=== PATIENT | male | born 1940 | race Caucasian/White ===

== ENCOUNTER 2022-09-18 07:23 | Outpatient (CLI) | payer MEDICARE, OTHER, SELFPAY | END 2022-09-18 07:24 | disposition home or self-care (01) | LOC: NFLDREF 12:11 | PROVIDERS: PCP Family Medicine; Referring Provider Family Medicine; Visit Provider Family Medicine | DX: I25.10 Atherosclerotic heart disease of native coronary artery without angina pectoris (principal); Z12.5 Encounter for screening for malignant neoplasm of prostate | CPT/HCPCS: 80053; 80061; 84153 ==

== ENCOUNTER 2023-03-03 15:14 | Outpatient (CLI) | payer MEDICARE, OTHER, SELFPAY ==
--- NOTE | 2023-03-03 15:30 | MR_ITS ---
[facility] [address] [facility] [address] Phone:?[phone] Fax:?[phone] Referring Physician Information: Jeancarlos Yu M.D. [address] [facility] [address] Phone:?[phone] Fax:?[phone] Patient:Jen Manjarrez D.O.B:?1940 Sex:?Male Phone:?[phone] [facility] MRN:?[id number] Exam Date:?03/03/2023 EXAM: MRI of the LEFT KNEE, without contrast CLINICAL INFORMATION: Male, 82 years old, with left knee pain. INDICATION: Evaluate for osteonecrosis. PRIOR SURGERY: None reported. PLAIN FILMS: None available. COMPARISONS: No prior MRIs available. TECHNICAL INFORMATION: Using a 1.5T MR scanner and a localizing surface coil: sagittals: PD, PDFS coronals: PD, T2FS axials: PD, PDFS SEDATION: None CONTRAST: None FINDINGS: Knee joint: Effusion: Moderate left knee effusion, with synovitis. Popliteal cyst: None. Loose bodies: None. Subcutaneous and extra-articular soft tissues: Unremarkable. Ligaments: ACL: Intact ACL anteromedial and posterolateral bundles, without sprain or tear. PCL: Intact PCL, without acute or chronic injury. MCL: Mild thickening involving the proximal one third of the superficial MCL, without MCL tear. LCL: Intact LCL, without injury. Posterolateral corner: No posterolateral corner soft tissue injury. Popliteus, biceps femoris, iliotibial band, popliteofibular ligament and lateral gastrocnemius are intact. Posteromedial corner: No posteromedial corner soft tissue injury. Semimembranosus, pes anserine tendons and posterior oblique ligament are without injury, tendinopathy or bursitis. Extensor mechanism: Patellar tendon: Intact, without tendinopathy. Quadriceps tendon: Intact, without tendinopathy. Retinacula: Medial and lateral retinacula are intact. Fat pads: Moderately edematous appearance of the suprasellar fat pad (sagittal PDFS series 6 images 15-22). Unremarkable prevertebral femoral and infrapatellar Hoffa's fat pads. Medial compartment: Medial meniscus: Complex apical free edge and undersurface tearing of the posterior horn and body of the medial meniscus measuring 3.2 cm, with superimposed full-thickness radial tearing at the posterior horn/body junction (sagittal PDFS series 6 images 4-10 and coronal STIR series 8 images 20-24). Meniscal extrusion measures 4 mm. No parameniscal cyst. Medial femoral condyle: Broad-based grade III chondromalacia throughout the central surface of the medial femoral condyle with moderate subchondral edema and cystic change (coronal STIR series 8 image 21). Mild marginal osteophytosis. Medial tibial plateau: Generalized grade III chondromalacia of the medial tibial plateau, with mild marginal osteophytosis. Lateral compartment: Lateral meniscus: No articular surface, meniscosynovial junction or root tear. No displacement, extrusion or parameniscal cyst. Lateral femoral condyle & tibial plateau: Broad-based grade II chondromalacia throughout the central, weightbearing aspect of the lateral compartment, without reactive osseous changes. Patellofemoral joint: Patella: Broad-based grade II/III chondromalacia of the medial facet and median ridge, with mild marginal osteophytosis. Trochlea: Broad-based grade II/III chondromalacia of the medial facet and central sulcus, with mild marginal osteophytosis. Proximal tibiofibular joint: Unremarkable, without evidence of ligament sprain injury, joint effusion or adjacent marrow edema. Bones: Approximately 1.9 x 1.4 cm area of mild concavity of the central surface of the medial femoral condyle with subtle subchondral fracturing (sagittal PDFS series 6 image 7 and coronal PD series 7 image 23). This is associated with extensive surrounding bone marrow edema. IMPRESSION: 1. Complex tearing of the posterior horn and body medial meniscus over a length of 3.2 cm, most notable for full-thickness radial tearing at the posterior horn/body junction. This tear is expected to diminish the intrinsic meniscal load sharing function. 2. Approximately 1.9 x 1.4 cm poorly defined subchondral fracture of the central surface of the medial femoral condyle, with concavity of the overlying articular surface. This is associated with extensive surrounding bone marrow edema. 3. Moderate osteoarthritis of the medial compartment. 4. Mild osteoarthritis of the patellofemoral compartment. 5. Mild chondromalacia of the lateral compartment. 6. Moderate knee joint effusion, with synovitis. No popliteal (Fairchild's) cyst. 7. No acute cruciate or collateral ligament sprain/tear. 8. No lateral meniscal tear. BC Electronically signed on 03/04/2023 10:02:00 AM by Kobi Samuel M.D.
== END 2023-03-03 15:15 | disposition home or self-care (01) ==
LOC: MRI 15:15
PROVIDERS: PCP Family Medicine; Visit Provider Orthopaedic Surgery Sports Medicine
DX: M25.562 Pain in left knee (principal); S83.242A Other tear of medial meniscus, current injury, left knee, initial encounter; M17.12 Unilateral primary osteoarthritis, left knee; M22.42 Chondromalacia patellae, left knee; M25.462 Effusion, left knee; M87.9 Osteonecrosis, unspecified
CPT/HCPCS: 73721

== ENCOUNTER 2023-09-03 08:30 | Outpatient (CLI) | payer MEDICARE, OTHER, SELFPAY ==
[2024-09-02 10:50] LABS: Hemoglobin* 14.5 gm/dL (13.5-17.5)
[2024-09-02 11:02] LABS: Albumin* 4.3 g/dL (3.3-5.0); Chloride* 102 mmol/L (96-114); Potassium* 4.5 mmol/L (3.6-5.1); Sodium* 137 mmol/L (135-149)
[2024-09-02 11:05] LABS: Anion Gap 10 mEq/L (7-15); Blood Urea Nitrogen* 19 mg/dL (7-30); Calcium* 9.5 mg/dL (8.4-10.6); Carbon Dioxide* 25 mmol/L (20-32); Creatinine* 1.2 mg/dL (0.5-1.5); Estimated Glomerular Filt Rate 60 ml/min; Glucose* 179 mg/dL (60-115)
[2024-09-02 11:07] LABS: Creatinine Urine 57.9 mg/dL
[2024-09-02 11:14] LABS: Microalbumin Creatinine Ratio 50 mg/g (0-30); Microalbumin Urine 3 mg/dL
[2024-09-02 11:15] LABS: PTH Intact* 37.3 pg/mL (14.2-75.2)
== END 2023-09-03 08:31 | disposition home or self-care (01) ==
LOC: NPINS 09-05 11:10
PROVIDERS: PCP Family Medicine; Visit Provider Internal Medicine Nephrology
DX: N18.31 Chronic kidney disease, stage 3a (principal)
CPT/HCPCS: 80069; 82043; 82570; 83970; 85018

== ENCOUNTER 2023-10-21 07:55 | Outpatient (CLI) | payer MEDICARE, OTHER, SELFPAY ==
--- OUTSIDE RECORDS SUMMARY | 2023-10-21 07:57 | XMS_ITS | Continuity of Care Document ---
Author Name 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 It does not include entries that were removed or entered in error. Problem Status Onset Date Problem Type Date of Resolution Comments Source Coronary Artery Disease Active Condition Mar 19, 2011 Entered By: ZULMA TIERNEY Comment: lad stent 09 [facility] Gastroesophageal Reflux Disorder Active Condition [facility] Hypertension Active Condition [facility] Hypogonadism Active Condition [facility] Other and unspecified hyperlipidemia Active Condition [facility] Other left bundle branch block Active Condition [facility] SENSORNEUR LOSS BILAT Active Condition [facility] Diagnosis: ICD-10-CM H90.5 Unspecified sensorineural hearing loss Active Diagnosis [facility] Diagnosis: ICD-10-CM H90.3 Sensorineural hearing loss, bilateral Active Diagnosis [facility] Medications Combined list of outpatient medications from Department of [facility] and [facility] facilities.Medications provided include 1) outpatient medications from the last 15 months, and 2) patient-reported medications. Medication Details Route Status Patient Instructions Prescription Expires Prescription Number Last Dispense Date Ordering Provider Order Date Order Qty Source CLOPIDOGREL BISULFATE 75MG TAB TAKE ONE TABLET BY MOUTH EVERY MORNING ORAL ACTIVE ZULMA SHETH [address] [place] [place] [facility] FAMOTIDINE (famotidine ), 20 MG, TABLET, ORAL, [employer] 1000 ea. BOTTLE Active [id number] 4 2023 180 Pharmac y Data Transac tion Service Facilit y FENOFIBRATE (fenofibrat e nanocrystal lized), 145MG, TABLET, ORAL, [employer], 90 ea. BOTTLE Active [id number] 4 2023 90 Pharmac y Data Transac tion Service Facilit y FENOFIBRATE (fenofibrat e nanocrystal lized), 145MG, TABLET, ORAL, [employer], 90 ea. BOTTLE Active [id number] 4 2023 90 Pharmac y Data Transac tion Service Facilit y FENOFIBRATE 134MG CAP TAKE 1 CAPSULE BY MOUTH EVERY DAY ORAL ACTIVE [facility]ST ON,[place] [facility] [address] [place] [place] [facility] FISH OIL 1000MG (500MG DHA/EPA) CAP,ORAL TAKE 4 CAPSULES BY MOUTH EVERY DAY ORAL ACTIVE [facility] ON,[place] [facility] [address] [place] [place] [facility] LISINOPRIL (lisinopril ), 40 MG, TABLET, ORAL, [employer], 1000 ea. BOTTLE Active [id number] 4 2023 90 Pharmac y Data Transac tion Service Facilit y LISINOPRIL (lisinopril ), 40 MG, TABLET, ORAL, [employer], 180 ea. BOTTLE Active [id number] 3 2022 90 Pharmac y Data Transac tion Service Facilit y LISINOPRIL 40MG TAB TAKE ONE-HALF TABLET BY MOUTH EVERY MORNING ORAL ACTIVE [facility]ST ON,[place] [address] [place] [place] [facility] METOPROLOL SUCCINATE (metoprolol succinate), 25 MG, TAB ER 24H, ORAL, [employer] 1000 ea. BOTTLE Active [id number] 4 2023 90 Pharmac y Data Transac tion Service Facilit y METOPROLOL SUCCINATE 50MG TAB,SA TAKE ONE-HALF TABLET BY MOUTH EVERY DAY ORAL ACTIVE [facility] ON,[place] [address] [place] [place] [facility] MULTIVITAMI NS CAP/TAB TAKE ONE TABLET BY MOUTH EVERY DAY ORAL ACTIVE [place] ON,[place] [address] [place] [place] [facility] RANITIDINE HCL 150MG TAB TAKE ONE TABLET BY MOUTH TWICE A DAY ORAL ACTIVE [facility]ATHERST ON,[facility] [address] [place] [place] [facility] ROSUVASTATI N CA 40MG TAB TAKE ONE-HALF TABLET BY MOUTH EVERY DAY ORAL ACTIVE [place]ERST ON,[place] [address] [place] [place] [facility] ROSUVASTATI N CALCIUM (rosuvastat in calcium), 40 MG, TABLET, ORAL, [employer] 1000 ea. BOTTLE Active [id number] 4 2023 90 Pharmac y Data Transac tion Service Facilit y ROSUVASTATI N CALCIUM (rosuvastat in calcium), 40 MG, TABLET, ORAL, [employer] 30 ea. BOTTLE Active [id number] 4 2023 90 Pharmac y Data Transac tion Service Facilit y SILDENAFIL CITRATE (sildenafil citrate), 50 MG, TABLET, ORAL, [employer], 100 ea. BOTTLE Active [id number] 4 2023 10 Pharmac y Data Transac tion Service Facilit y SILDENAFIL CITRATE (sildenafil citrate), 50 MG, TABLET, ORAL, [employer], 100 ea. BOTTLE Active [id number] 4 2023 10 Pharmac y Data Transac tion Service Facilit y SILDENAFIL CITRATE (sildenafil citrate), 50 MG, TABLET, ORAL, [employer], 100 ea. BOTTLE Active [id number] 3 2023 10 Pharmac y Data Transac tion Service Facilit y SILDENAFIL CITRATE (sildenafil citrate), 50 MG, TABLET, ORAL, [employer], 100 ea. BOTTLE Active [id number] 4 2023 10 Pharmac y Data Transac tion Service Facilit y TESTOSTERON E GEL,TOP APPLY 5 GRAMS TOPICALL Y EVERY DAY TOPICA L ACTIVE FEATH[facility]ST ON,ZULMA P [address] [place] [place] [facility] Immunizations Combined list of available immunizations from the Department of Defense and Veterans Affairs facilities. Immunization Series Date Given Administered By Site Reaction Lot Number CVX Code Drug Steward/Stewardess Lounge Status Comments Source zoster recombinant 2020 DINORAH, () Not Given zoster recombina nt DoD Influenza vaccine, quadrivalent, adjuvanted 2019 OVERHOLT, () Not Given Influenza vaccine, quadrival ent, adjuvante d DoD INFLUENZA, UNSPECIFIED FORMULATION 2010 NONE 88 complet ed [id number] anofi Pasteur/0 12/13/2011 [place] [place] [facility] PNEUMOCOCCAL, UNSPECIFIED FORMULATION 2010 NONE 109 complet ed [employer] [id number] / [id number] [place] [place] [facility] TD(ADULT) UNSPECIFIED FORMULATION 2010 NONE 139 complet ed [id number]/ [id number]/ Sanofi Pasteur [place] [place] [facility] INFLUENZA, UNSPECIFIED FORMULATION 2004 88 complet ed [facility] INFLUENZA, UNSPECIFIED FORMULATION 2002 88 complet ed [facility] Encounters Combined list of: 1) Encounters from Department of [facility] Affairs facilities going back up to thelast 18 months. 2) Encounters from the Department of [facility] facilities going back up to 280 months. Location Location Details Encounter Type Encounter Number Reason For Visit Attending Provider ADM Date DC Date Status Disposition Source [facility] [id number] Diagnos is: ICD-10- CM H90.3 Sensori neural hearing loss, bilater al
KRIS HERNANDEZ 05/14 [facility] [id number] Diagnos is: ICD-10- CM H90.3 Sensori neural hearing loss, bilater al
LEONID KILGORE 07/11 [facility] [id number] Diagnos is: ICD-10- CM H90.5 Unspeci fied sensori neural hearing loss
UDAY EAST 08/19 [facility] Social History Combined list of available smoking, tobacco, and other social history from Department of Defense and Veterans Affairs facilities. Social History Type Response Date Comment Sourc e Tobacco smoking status NHIS LIFETIME NON-USER OF TOBACCO 03/19/2011 [place] [place] [facility] This section is an empty social history section. DoD Advance Directives List of completed, amended, or rescinded Advance Directives on record at [facility] facilities. An actual copy of the Directive is not included. Date Advance Directive Provider Source 10/20/2003 ADVANCE DIRECTIVE SKIP DAMON [facility]
--- OUTSIDE RECORDS SUMMARY | 2023-10-21 07:58 | XMS_ITS | Data Portability ---
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 -- collect your urine for 24 hours to get a more accurate kidney function [email or web address] Not available 06/14/2015 18:14:18 06/28/2015 06/28/2015 -- do not take NSAIDs and other medications toxic to your kidneys -- keep your blood pressure <140/90 to prevent the progression of kidney disease -- maintain a healthy lifestyle?? Having kidney disease puts you at an increased risk for developing worsening of kidney function. ??Being hospitalized, being dehydrated, getting toxic medications or contrast, or having long procedures or surgeries, or having shifts in your body fluid status are some ways that can result in kidney injury. These injuries are considered acute meaning that there is a chance of recovery to somewhere near where your kidney function was prior to the insult, only time will tell if this recovery occurs. Depending on the severity of the insult, the severity of your chronic kidney disease, and your overall health your kidney function may or may not recover. The more insults that you receive and the closer together those insults are the less likely your kidney function will recover. I have instructed your doctors on some ways to try to prevent these injuries, but it is not a guarantee that you would develop worsening kidney function. I have discussed the risks and benefits of the procedure/surger y with you and you have expressed understanding and have chosen to proceed with the procedure/surger y.?? [email or web address] Not available 06/28/2015 11:09:29 05/30/2020 05/30/2020 using ; 2 diff forms of vit d , he will cut back vit d to 3 days per week rtc with labs 2 months Not available 05/30/2020 17:25:01 07/13/2020 07/13/2020 using ; 2 diff forms of vit d , he will cut back vit d to 2 days per week rtc no labs 7 weeks Start hydralazide 25 mg twice a day Not available 07/13/2020 11:09:54 Plan of Treatment Reminders Order Date Submit Date Provider Last Modified By Organization Details Last Modified Time Details Appointments None recorded. Lab vitamin D, 25-hydroxy, total, serum 2019 020 [facility] ([employer]), [address] [place], [address], 1 10:54:35 renal function panel, serum 2019 020 [email or web address] 5 [facility] [address] [place], [address], 0 17:50:39 vitamin D, 25-hydroxy, total, serum 2019 020 [facility] [address] [place], [address], 0 13:35:56 renal function panel, serum [address] [facility] ([facility]), [address] [facility] [place], [address], 0 12:28:40 PTH (parathyroi d hormone), intact, serum or plasma 2019 020 JAE [facility] ([facility]), [address] [place], [address], 0 18:23:45 vitamin D, 25-hydroxy, total, serum 2019 020 [email or web address] s1 [facility] ([facility]), [address] [place], [address], 0 11:21:34 renal function panel, serum 2019 020 mbustillo s1 [facility] ([facility]), [address] [place], [address], 0 11:21:33 PTH (parathyroi d hormone), intact, serum or plasma [address] ([facility]), [address] [place], [address], 0 11:21:34 CBC w/ diff 2019 020 mbustillo s1 [facility] ([facility]), [address] [place], [address], 0 11:21:34 protein, total, urine [address] ([facility]), [address] [place], [address], 0 11:21:34 renal function panel, serum 2015 016 tbandin Not available 6 11:12:20 urinalysis complete, reflex culture 2015 016 tbandin Not available 6 11:12:21 protein:cre atinine ratio, urine 2015 016 tbandin Not available 6 11:12:21 creatinine clearance, 24-hour urine 2014 015 JAE Not available 6 10:38:47 renal function panel, serum 2014 015 JAE Not available 6 10:47:52 urinalysis complete, reflex culture 2014 015 JAE Not available 6 10:38:47 protein:cre atinine ratio, urine 2014 015 JAE Not available 6 10:38:48 Referral None recorded. Procedures None recorded. Surgeries None recorded. Imaging US, kidney 2019 020 [email or web address] Not available 0 12:23:14 Medication Orders hydralazine 25 mg tablet 2020 021 [facility], [address] [place] [address], [address], 03:30:50 Patient TargetsNo targets recorded. Patient Instructions Encounter Date Encounter Id Patient Instructions Last Modified By Organization Details Last Modified Time 07/13/2020 [id number] medical record request* - Please fax last ov note and recent echo. Thank you [email or web address] Not available 08/02/2020 17:33:00 05/30/2020 [id number] medical record request* - Please fax last ov note and recent echo. Thank you [email or web address] Not available 09/16/2020 22:58:56 03/14/2020 [id number] medical record request* - Please fax last ov note and recent echo. Thank you Not available 03/27/2020 16:44:21 02/01/2020 [id number] CKD stages Not available 01/13 12:14:54 nephrotoxic & nsaid medications Not available 02/01/2020 12:14:54 medical record request* - Please fax last ov note and recent echo. Thank you Not available 02/09/2020 17:24:56 06/28/2015 [id number] nephrotoxic & nsaid medications tbandin Not available 06/28/2015 11:11:54 low sodium diet tbandin Not available 06/28/2015 11:12:10 06/14/2015 [id number] nephrotoxic & nsaid medications ldeprada Not available 06/14/2015 18:14:18 low sodium diet ldeprada Not available 06/14/2015 18:14:18 Reason for Referral None Reported. Results Created Date Observation Date Name Description Value Unit Range Abnormal Flag LastModifiedBy Organization Detail LastModifiedTime 03/14/20 20 02/15/2020 US, trupti y No deshaun ation record ed. Not Available 05/30/2020 17:23:19 Result Notes None recorded. Problems Name Status Onset Date Resolution Date Notes Provider Name and Address Organization Details Recorded Time Renal failure syndrome Active Kala Turcios MD [address] [place] [address],[address], [place], [address] , [facility], [facility] 06/28/2015 11:10:28 Essential hypertension Active Kala Turcios MD [address] [place] [address],[address], [place], [address] , [facility], [facility] 06/28/2015 11:10:28 Osteoarthritis Active Kala Turcios MD [address] [place] [address],[address], [place], [address] , [facility] 06/28/2015 11:10:28 Benign prostatic hyperplasia with outflow obstruction Dorothy Turcios MD [address] [place] [address],[address], [place], [address] , [facility] 06/28/2015 11:10:28 Chronic kidney disease stage 3 Active Kala Turcios MD [address] [place] [address],[address], [place], [address] , [facility] 06/28/2015 11:10:28 Notes:07/13 GRICELDA NOBLE Problem Notes None recorded. Procedures Surgical History Date Name Laterality Status Provider Name and Address Organization Details Recorded Time 01/01/20 14 Hip Replacement completed Jodi cedeño, [facility] 02/01/2020 11:49:29 06/15/19 03 Other completed Felice Sernart cedeño, [facility] 06/14/2015 17:47:08 percutaneous transluminal coronary angioplasty completed Kitty Novak MD [address] [facility],[address], [place], [address], [facility] - [facility], [facility] 02/01/2020 12:03:56 Imaging Results Imaging Date Name Status LastModified by Organiz ation Details LastModified Time 02/15/2020 US, kidney completed Information no t available 05/30/2020 17:23:19 Procedure Notes None recorded. Medical Equipment None Reported. Allergies No known drug allergies Medications Name Sig Start Date Stop Date Status Note LastModified by Organization Details LastModified Time hydralazine 25 mg tablet Take 1 tablet twice a day by oral route for 90 days. active Not Available Not Available No t Available Plavix 75 mg tablet Take 1 tablet every day by oral route. 01/31 completed Not Available Not Available Not Available cephalexin 500 mg capsule TAKE ONE CAPSULE BY MOUTH THREE TIMES DAILY FOR 10 DAYS active Not Available Not Available No t Available ranitidine 150 mg tablet 01/31 completed Not Available Not Available Not Available nitroglycer in 0.4 mg sublingual tablet prn active Not Available Not Available Not Available ranitidine 150 mg capsule Take 1 capsule twice a day by oral route. 01/31 completed Not Available Not Available Not Available metoprolol succinate ER 25 mg tablet,exte nded release 24 hr Take 1 tablet every day by oral route. active Not Available Not Available No t Available Pepcid 20 mg tablet Take 1 tablet every day by oral route for 90 days. active Not Available Not Available No t Available methylpredn isolone 4 mg tablets in a dose pack TAKE DIRECTED active Not Available Not Available No t Available testosteron e 1 % (25 mg/2.5 gram) transdermal gel packet 07/13 completed Not Available Not Available Not Available lisinopril 40 mg tablet Take 1 tablet every day by oral route. active Not Available Not Available No t Available fluticasone propionate 50 mcg/actuati on nasal spray,suspe nsion SPRAY 2 SPRAYS IN EACH NOSTRIL ONCE DAILY NEEDED active Not Available Not Available No t Available rosuvastati n 40 mg tablet Take 1 tablet every day by oral route for 90 days. active Not Available Not Available No t Available Crestor 20 mg tablet Take 1 tablet every day by oral route. 01/31 completed Not Available Not Available Not Available tadalafil 10 mg tablet active Not Available Not Available Not Available Tricor 145 mg tablet Take 1 tablet every day by oral route for 90 days. active Not Available Not Available No t Available omega-3 acid ethyl esters 1 gram capsule Take 1 capsule 4 times a day by oral route. active Not Available Not Available No t Available Tricof 145mg 01/31 completed Not Available Not Available Not Available metoprolol succ 25 mg-hydrochl orothiazide 12.5 mg tablet,ext. rel 24 hr Take 1 tablet every day by oral route. active Not Available Not Available No t Available Fluad Quad (6 5yr up)(PF) 60 mcg (15 mcg x 4)/0.5mL IM syringe ADM 0.5ML IM UTD 03/14 completed Not Available Not Available Not Available Vitals Date Recorded Body height Heart rate Body weight Body mass index (BMI) Systolic blood pressure Diastolic blood pressure Provider Name and Address Organization Details Last Updated DateTime 5 190.5 cm 68 /min 141618. 08820 g 29.7 kg/m2 140 mm[Hg] 80 mm[Hg] Felice [facility], [facility] 5 17:47:08 Date Recorded Body height Heart rate Body mass index (BMI) Body weight Systolic blood pressure Diastolic blood pressure Provider Name and Address Organization Details Last Updated DateTime 6 190.5 cm 61 /min 28.6 kg/m2 863945. 89644 g 140 mm[Hg] 70 mm[Hg] Felice [facility], [facility] 6 10:51:48 Date Recorded Body height Body mass index (BMI) Body weight Systolic blood pressure Diastolic blood pressure Provider Name and Address Organization Details Last Updated DateTime 02/01/2020 195.58 cm 28.2 kg/m2 701418.9 8 g 140 mm[Hg] 80 mm[Hg] Jodi cedeño, [facility], [facility] 0 11:47:19 Date Recorded Body height Provider Name an d Address Organization Details Last Updated DateTime 03/08/[address] [address] [facility] 03/08/2020 17:24:42 Date Recorded Body height Body mass index (BMI) Body weight Provider Name and Address Organization Details Last Updated DateTime 03/14/2020 195.58 cm 28.5 kg/m2 743953.[address] [facility] 03/14/2020 12:06:05 Date Recorded Body height Body mass index (BMI) Body weight Provider Name and Address Organization Details Last Updated DateTime 05/30/2020 195.58 cm 28.5 kg/m2 224583.17 g Jodi Kay [facility], [facility], [facility] 05/30/2020 17:15:07 Date Recorded Body height Body mass index (BMI) Body weight Systolic blood pressure Diastolic blood pressure Systolic blood pressure Diastolic blood pressure Provider Name and Address Organization Details Last Updated DateTime 1 195.58 cm 28.2 kg/m2 569874. 98 g 160 mm[Hg] 90 mm[Hg] 138 mm[Hg] 80 mm[Hg] Jodi Kay [facility], [facility], [facility] 1 10:56:59 Social History Question Answer Notes LastModified by Organizat ion Details LastModified Time Tobacco Smoking Status Former Smoker Felice Sernart cedeño, [facility], [facility] 06/14/2015 17:47:07 What Is Your Level Of Alcohol Consumption? Occasional Information not available 02/01/2020 What Is Your Level Of Caffeine Consumption? None Information not available 06/14/2015 How Much Tobacco Do You Chew? None Information not available 06/14/2015 Which Illicit Or Recreational Drugs Have You Used? 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 No Information not available 06/14/2015 How Many Years Have You Smoked Tobacco? 15 Information not available 06/14/2015 Sex: Male Functional Status None recorded. Mental Status None recorded. Family History Relationship Description Onset Age of this Age Resolved Age Notes Father No current problems or disability heart dx, Mother No current problems or disability 83 cancer Notes:no family h/o kidney d isease 07/13 GRICELDA NOBLE Medical History Condition Response Coronary Artery Disease N [facility] Discharge Date N Kidney Stones N CKD 4 - Education Session 2 N PD catheter present N Access placement referred (PD/AVF) N CKD 4 - Education Session 5 N Echo EF N COPD N Anemia N Hepatitis C N CKD 4 - Education Session 6 N Dialysis Start - Office OR Hospital N CKD 4 - Education Session 3 N Kidney Transplant N Peripheral Vascular Disease (PVD) N Kidney Disease (CKD) Y Diabetes Type 2 N CKD 4 - Education Session 4 N [facility] Discharge Reason N AVF present N CHF N CKD 4 - Education Session 1 N Hyperlipidemia Y Acid Reflux (GERD) N Cancer N NSAIDs use N Stroke N Asthma N Hepatitis B N Lupus N Sleep Apnea N Diabetes Type I N Polycystic Kidney Disease N Hypertension Y ESRD Onset Date N Immunizations Vaccine Type Date Status Provider Name and Address Organization Details Recorded Time influenza, injectable, quadrivalent 02/23/2020 completed ANNY Gonzales - [facility], [facility] 03/14/2020 12:05:14 Past Encounters Encounter ID Performer Location Encounter Start Date Encounter Closed Date Diagnosis/Indication Diagnosis SNOMED-CT Code [id number] Salvador Elena MD [facility] [address] [place] [address],[address] [address] 06/14/2015 17:17:46 06/14/2015 18:17:34 Renal failure syndrome 25121060 Essential hypertension 79902059 Osteoarthritis 216642682 Benign pro static hyperplasia with outflow obstruction [id number] Farahn Rogers MD [facility] [address] [place] [address],[address] [address] 06/28/2015 10:39:20 06/28/2015 11:15:42 Essential hypertension 49703754 Osteoarthritis 404209729 Benign pro static hyperplasia with outflow obstruction 793575412 Chronic ki dney disease stage 3 [id number] [id number] Kitty Novak MD [address] [address] 02/01/2020 11:43:55 02/01/2020 15:25:10 Chronic kidney disease stage 3 791780792 Essential hypertension 52733376 Osteoarthritis 329566735 Coronary arteriosclerosis 22798319 Hyperlipidemia 54776133 Gastroesop hageal reflux disease without esophagitis 450411211 Vitamin D deficiency 347 73305 [id number] Kitty Novak MD [facility] [place] [address] [place] [address] 03/14/2020 12:02:52 03/14/2020 17:20:58 Chronic kidney disease stage 3 990578579 Coronary arteriosclerosis 77029453 Essential hypertension 32269462 Osteoarthritis 312565106 Hyperlipidemia 80519642 Gastroesop hageal reflux disease without esophagitis 726567847 Vitamin D deficiency 347 10926 [id number] Kitty Novak MD [address] [address] 05/30/2020 17:11:59 05/30/2020 17:51:14 Chronic kidney disease stage 3 135555830 Coronary arteriosclerosis 99188441 Essential hypertension 17082362 Osteoarthritis 152936006 Hyperlipidemia 66978379 Gastroesop hageal reflux disease without esophagitis 410986991 Vitamin D deficiency 347 54649 [id number] Kitty Novak MD [facility] [place] [address] [address] 07/13/2020 10:35:19 07/13/2020 12:19:57 Chronic kidney disease stage 3 030397306 Coronary arteriosclerosis 38023631 Essential hypertension 64823955 Osteoarthritis 770791134 Hyperlipidemia 57419960 Gastroesop hageal reflux disease without esophagitis 377182937 Vitamin D deficiency 347 10242 Health Concerns Section Related Observation LastModified by Organization Detai ls LastModified Time None Recorded Concern Status LastModified by Organization Details LastModified Time None Recorded Advance Directives Directive None Recorded Payers Encounter Date Sequence Insurance Name Policy Number Policy Bauman Covered Member ID Bauman Member ID Guarantor Name 07/13/2020 1 [place] Vamshi Manjarrez [id number] Vamshi Manjarrez 07/13/2020 2 WPS - FOR LIFE Vamshi Manjarrez [id number] Vamshi Manjarrez 05/30/2020 1 [place] Vamshi Manjarrez [id number] Vamshi Manjarrez 05/30/2020 2 [place] - FOR LIFE Vamshi Manjarrez [id number] Vamshi Loki 03/14/2020 1 [place] Vamshi Manjarrez [id number] Vamshi Loki 03/14/2020 2 [place] - FOR LIFE Vamshi Loki [id number] Vamshi Loki 02/01/2020 1 [place] Vamshi B Loki [id number] Vamshi Loki 02/01/2020 2 [place] - FOR LIFE Vamshi Loki [id number] Vamshi Loki 06/28/2015 1 [place] Vamshi Nichole Manjarrez [id number] Vamshi Loki 06/28/2015 2 [place] - FOR LIFE Vamshi Loki [id number] Vamshi Loki 06/14/2015 1 [place] Vamshi Manjarrez [id number] Vmashi Loki 06/14/2015 2 [place] - FOR LIFE Vamshi Manjarrez [id number] Vamshi Manjarrez Notes Date Note Type Note Provider Name and Address Organization Details Recorded Time 06/14/2015 text/html HPI Notes: Danna garnett sent by PCP for abnormal kidney function. He reports that he needs to have a hip replacement and was doing preop work up (not scheduled yet) and had blood work done and found to have abnormal kidney function. He already has been cleared by cardiology. Never been told of kidney disease prior to this, this was not an issue for his hip replacement in 2013. No family h/o kidney disease, dialysis, or urinary issues. No urinary issues, no hematuria, no dysuria, no changes in vol or color, no foam/bubbles, eating and drinking well, no n/v/d, no swelling in legs, +nocturia 2-3 times per night. Patient has had HTN for 5 years ago, +CAD s/p PCI 2012, no CVA, no OK, no other known cardiac disease. No DM. +NSAID use a couple of times a week. Salvador Elena MD [address] [facility],[address], [place], [address], [facility] - [facility], [facility] 06/18/2015 13:26:20 06/28/2015 text/html HPI Notes: Danna mariola here for follow up of CKD 2/2 HTN (2009) and age. Also has CAD s/p PCI 2012. No DM. No issues/hospitalizati ons since last visit. Patient has hip replacement surgery scheduled 07/09/15. Eating and drinking well, no n/v/d, no urinary complaints. BP has been <140/70, currently higher than usual because he's drinking coffee. No changes in medications since last visit. Farhan Rogers MD [address] [facility],[address], [place], [address], [facility] - [facility] 06/28/2015 11:28:43 02/01/2020 text/html HPI Notes: The patient is here for a new patient evaluation of CKD. JAN 2020 IN response to the [facility] , the patient is being evaluated for CHRONIC KIDNEY DISEASE follow up via [employer] . The patient is a 79 year old man with medical history of ; CHRONIC KIDNEY DISEASE CAD s/p PCI 2012. HTN Hyperlipidemia His labs show; Jan 21 2020 ; CR 1.3 , ua non reactive december 19 k 4.5, cr 1.6, egfr48 a1c 6.15 september 2019 ; tc 136 tg 294, HDL 38 , Cr 1.6, egfr 41 Hb 15.4, UPCR 24, 24 hr collection 2015 ; CR cl 58 06/18/15: Cr 1.29, GFR 55, Na 138, K 4.7, HCO3 26, Ca 9, Alb 4, UA neg blood, neg prot, UPC 69 mg/g, 24 hr urine 58 mL/min. 06/12/15: Cr 1.62, GFR 41, Na 138, K 4.9, HCO3 25, Ca 8.8, Alb 3.7 HTN The patient has had high BP for many years. No history of hypertension emergencies, CvA, TIA . The blood pressure meds; AMlodipine HYdralazine 25 twice daily Toprol xl 25 mg d OA, sp HIP and shoulder surg NSAID use: prior none now GERD, on h2 bonita , denies PPI use HLP Tricor, rosuvastatin Urology ; Denies symptoms of prostatism. NO history of kidney stones . No family h/o kidney disease, dialysis, or urinary issues. No urinary issues, no hematuria, no dysuria, no changes in vol or color, no foam/bubbles, eating and drinking well, no n/v/d Kitty P Novak, MD [address] [facility],[address], [place], [address], [facility] - [facility], [facility] 02/01/2020 12:17:40 03/14/2020 text/html HPI Notes: The patient is here for a follwo up evaluation of CKD. Feb 2020 IN response to the COVID - 19 Health Emergency , the patient is being evaluated for CHRONIC KIDNEY DISEASE follow up via [employer] . The patient is a 79 year old man with medical history of ; CHRONIC KIDNEY DISEASE CAD s/p PCI 2012. HTN Hyperlipidemia His labs show; feb 13 2020 Hb 13.5 cr 1.4 , UPCR 0.05 , alb 4.1 feb 2020 R kid 12.8 , l kid 11.4 ,no hydronep, no stones, , post void 147 cc Jan 21 2020 ; CR 1.3 , ua non reactive december 19 k 4.5, cr 1.6, egfr48 a1c 6.15 september 2019 ; tc 136 tg 294, HDL 38 , Cr 1.6, egfr 41 Hb 15.4, UPCR 24, 24 hr collection 2015 ; CR cl 58 06/18/15: Cr 1.29, GFR 55, Na 138, K 4.7, HCO3 26, Ca 9, Alb 4, UA neg blood, neg prot, UPC 69 mg/g, 24 hr urine 58 mL/min. 06/12/15: Cr 1.62, GFR 41, Na 138, K 4.9, HCO3 25, Ca 8.8, Alb 3.7 HTN The patient has had high BP for many years. No history of hypertension emergencies, CvA, TIA . The blood pressure meds; AMlodipine HYdralazine 25 twice daily Toprol xl 25 mg d OA, sp HIP and shoulder surg NSAID use: prior none now GERD, on h2 bonita , denies PPI use HLP Tricor, rosuvastatin Urology ; Denies symptoms of prostatism. NO history of kidney stones . No family h/o kidney disease, dialysis, or urinary issues. No urinary issues, no hematuria, no dysuria, no changes in vol or color, no foam/bubbles, eating and drinking well, no n/v/d Kitty Novak MD [address] [facility] [address], [place], [address], [facility] - [facility] 03/14/2020 12:22:12 05/30/2020 text/html HPI Notes: The patient is here for a follwo up evaluation of CKD. May 2020 IN response to the COVID - 19 Health Emergency , the patient is being evaluated for CHRONIC KIDNEY DISEASE follow up via [facility] . The patient is a 80 year old man with medical history of ; CHRONIC KIDNEY DISEASE CAD s/p PCI 2012. HTN Hyperlipidemia Currently in [place] , taking care of his elderly in laws His labs show; 05/18/20; Vit d 75, pth feb 13 2020 Hb 13.5 cr 1.4 , UPCR 0.05 , alb 4.1 feb 2020 R kid 12.8 , l kid 11.4 ,no hydronep, no stones, , post void 147 cc Jan 21 2020 ; CR 1.3 , ua non reactive december 19 k 4.5, cr 1.6, egfr48 a1c 6.15 september 2019 ; tc 136 tg 294, HDL 38 , Cr 1.6, egfr 41 Hb 15.4, UPCR 24, 24 hr collection 2015 ; CR cl 58 06/18/15: Cr 1.29, GFR 55, Na 138, K 4.7, HCO3 26, Ca 9, Alb 4, UA neg blood, neg prot, UPC 69 mg/g, 24 hr urine 58 mL/min. 06/12/15: Cr 1.62, GFR 41, Na 138, K 4.9, HCO3 25, Ca 8.8, Alb 3.7 HTN The patient has had high BP for many years. No history of hypertension emergencies, CvA, TIA . The blood pressure meds; AMlodipine stoped , using lisinopril instead 20 mg daily HYdralazine 25 twice daily Toprol xl 25 mg d OA, sp HIP and shoulder surg NSAID use: prior none now GERD, on h2 bonita , denies PPI use HLP Tricor, rosuvastatin Urology ; Denies symptoms of prostatism. NO history of kidney stones . No family h/o kidney disease, dialysis, or urinary issues. No urinary issues, no hematuria, no dysuria, no changes in vol or color, no foam/bubbles, eating and drinking well, no n/v/d Kitty Novak MD [address], [place], [id number], [facility] [place], [facility] 05/30/2020 17:25:40 07/13/2020 text/html HPI Notes: The patient is here for a follwo up evaluation of CKD. jun 2020 IN response to the COVID - 19 Health Emergency , the patient is being evaluated for CHRONIC KIDNEY DISEASE follow up via [facility] . The patient is a 80 year old man with medical history of ; CHRONIC KIDNEY DISEASE CAD s/p PCI 2012. HTN Hyperlipidemia Currently in [place] , taking care of his elderly in laws He is using only lisinopril, BP not at goal ; On abx for toes wound His labs show; jun 2020 Cr 1.2, egfr k 4.6, vit d 69, 05/18/20; Vit d 75, pth feb 13 2020 Hb 13.5 cr 1.4 , UPCR 0.05 , alb 4.1 feb 2020 R kid 12.8 , l kid 11.4 ,no hydronep, no stones, , post void 147 cc Jan 21 2020 ; CR 1.3 , ua non reactive december 19 k 4.5, cr 1.6, egfr48 a1c 6.15 september 2019 ; tc 136 tg 294, HDL 38 , Cr 1.6, egfr 41 Hb 15.4, UPCR 24, 24 hr collection 2015 ; CR cl 58 06/18/15: Cr 1.29, GFR 55, Na 138, K 4.7, HCO3 26, Ca 9, Alb 4, UA neg blood, neg prot, UPC 69 mg/g, 24 hr urine 58 mL/min. 06/12/15: Cr 1.62, GFR 41, Na 138, K 4.9, HCO3 25, Ca 8.8, Alb 3.7 HTN The patient has had high BP for many years. No history of hypertension emergencies, CvA, TIA . The blood pressure meds; AMlodipine stoped , using lisinopril now 40 mg daily HYdralazine 25 twice daily Toprol xl 25 mg d OA, sp HIP and shoulder surg NSAID use: prior none now GERD, on h2 bonita , denies PPI use HLP Tricor, rosuvastatin Urology ; Denies symptoms of prostatism. NO history of kidney stones . No family h/o kidney disease, dialysis, or urinary issues. No urinary issues, no hematuria, no dysuria, no changes in vol or color, no foam/bubbles, eating and drinking well, no n/v/d Kitty Novak MD [address], [place], [address], [facility] [place] 07/13/2020 11:10:23
--- OUTSIDE RECORDS SUMMARY | 2023-10-21 07:58 | XMS_ITS | Data Portability ---
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 Plan of Treatment Reminders Order Date Submit Date Provider Last Modified By Organization Details Last Modified Time Details Appointments None recorded . Lab lipid panel, blood 2019 020 [facility] [address] [place], [address], 0 12:50:35 HbA1c (hemoglo bin A1c), blood 2019 020 [facility] [address] [place], [address], 0 12:50:36 CMP, serum or plasma 2019 [facility] [address] [place], [address], 0 12:50:36 Referral None recorded . Procedures lexiscan cardioli te stress test (PROC) 2019 020 [email or web address] Not available 0 19:31:00 Surgeries left heart catheter ization (SURG) 2019 020 [email or web address] [facility] [address], [place], [address], 0 13:40:40 Imaging US, echocard iogram, transtho racic, complete , w/ color flow 2019 [email or web address] Not available 0 18:15:47 Medication Orders nitrogly cerin 0.4 mg sublingu al tablet 2019 020 INTERFACE [facility], [address] [place] [address], [address], 0 14:49:30 Lexiscan 0.4 mg/5 mL intraven ous syringe 2019 020 imadrigales [facility], [address] [place] [address], [address], 0 14:29:08 Lexiscan 0.4 mg/5 mL intraven ous syringe 2018 019 [email or web address] [facility], [address] [place] [address], [address], 0 14:29:08 Patient TargetsNo targets recorded. Patient Instructions Encounter Date Encounter Id Patient Instructions Last Modified By Organization Details Last Modified Time 12/14/2019 [id number] high blood pressure: care instructions Not available 12/14/2019 12:27:13 11/02/2019 [id number] high blood pressure: care instructions [email or web address] Not available 11/02/2019 14:39:58 10/05/2019 [id number] high blood pressure: care instructions [email or web address] Not available 10/05/2019 12:03:49 Reason for Referral None Reported. Results Created Date Observation Date Name Description Value Unit Range Abnormal Flag LastModifiedBy Organization Detail LastModifiedTime 11/04/19 19 05/06/2017 nucle ar med No observ ation record ed. [id number] [place], [address] 10/19/2019 05:14:51 11/04/19 19 05/06/2017 nucle ar stres s test No observ ation record ed. [id number] [place], [address] 10/19/2019 07:13:29 11/04/19 19 05/06/2017 jg can stres s test No observ ation record ed. [id number] [place], [address] 10/19/2019 07:13:29 12/29/19 19 12/27/2018 nucle ar stres s test No observ ation record ed. JAE Rogers MD [address] [place] [address], [place], [address], 12/28/2018 18:11:01 12/30/19 19 12/27/2018 US, echoc ardio alanna No observ ation record ed. JAE Not Available 12/30/2018 23:58:03 01/11/20 19 12/27/2018 nucle ar stres s test No observ ation record ed. [email or web address] Not Available 019 13:48:18 09/30/19 20 10/05/2018 elect juan manuel diogr am No observ ation record ed. [email or web address] Not Available 09/30/2019 23:27:10 10/25/19 20 10/19/2019 US, echoc ardio gram, trans thora cic, compl ete, w/ color flow No observ ation record ed. [email or web address] Not Available 11/01/2019 10:59:46 12/07/19 20 09/12/2008 XR, chest , 2 view No observ ation record ed. [email or web address] Not Available 12/07/2019 00:22:04 09/18/19 22 08/24/2012 myoca rdial perfu marco study w/ eject ion fract ion (PROC ) No observ ation record ed. [email or web address] Not Available 09/17/2021 15:43:03 09/18/19 22 11/21/2014 myoca rdial perfu marco study w/ eject ion fract ion (PROC ) No observ ation record ed. [email or web address] Not Available 09/17/2021 15:43:19 09/18/19 22 03/16/2013 trans -thor acic echoc ardio gram (TTE) (PROC ) No observ ation record ed. [email or web address] Not Available 09/17/2021 15:45:20 09/18/19 22 10/25/2014 trans -thor acic echoc ardio gram (TTE) (PROC ) No observ ation record ed. [email or web address] Not Available 09/17/2021 15:45:34 09/18/19 22 08/08/2015 trans -thor acic echoc ardio gram (TTE) (PROC ) No observ ation record ed. [email or web address] Not Available 09/17/2021 15:46:14 09/18/19 22 10/25/2014 trans -thor acic echoc ardio gram (TTE) (PROC ) No observ ation record ed. [email or web address] Not Available 09/17/2021 15:45:47 09/18/19 22 08/06/2011 trans -thor acic echoc ardio gram (TTE) (PROC ) No observ ation record ed. [email or web address] Not Available 09/17/2021 15:45:59 09/18/19 22 09/06/2012 ken r monit or No observ ation record ed. Not Available 09/17/2021 15:47:14 09/18/19 22 12/01/2007 trans -thor acic echoc ardio gram (TTE) (PROC ) No observ ation record ed. [email or web address] Not Available 09/17/2021 15:49:51 09/18/19 22 05/09/2009 myoca rdial perfu marco study w/ eject ion fract ion (PROC ) No observ ation record ed. [email or web address] Not Available 09/17/2021 15:50:35 09/18/19 22 12/01/2007 myoca rdial perfu marco study w/ eject ion fract ion (PROC ) No observ ation record ed. Not Available 09/17/2021 15:51:01 09/18/19 22 10/19/2019 jg farnsworths s test (PROC ) No observ ation record ed. [email or web address] Not Available 09/17/2021 15:57:26 Result Notes None recorded. Problems Name Status Onset Date Resolution Date Notes Provider Name and Address Organization Details Recorded Time Coronary arteriosclerosis in [place] artery Active Annie Ricky null, [facility] 0 23:48:26 Essential hypertension Active Annie Ricky null, [facility] 0 23:48:35 Cardiomyopathy Active Annie Ricky null, [facility] 0 23:49:38 Pure hypercholesterolemia Active Annie Ricky null, [facility] 0 23:50:16 Sleep apnea Active Annie Ricky null, [facility] 0 23:53:45 Bradycardia Active Annie Ricky null, [facility] 0 23:53:53 Gastroesophageal reflux disease Active Annie Ricky null, [facility] 0 23:54:01 Tricuspid valve regurgitation Active Annie Ricky null, [facility] 0 22:39:15 Mixed hyperlipidemia Active Annie Ricky null, [facility] 0 22:39:24 Aneurysm of thoracic aorta [facility] 22:39:38 Obstructive sleep apnea syndrome [facility] 00:31:34 Mitral valve regurgitation Active Annie Ricky null, [facility] 0 00:32:01 Problem Notes None recorded. Procedures Surgical History Date Name Laterality Status Provider Name and Address Organization Details Recorded Time 12/01/19 20 LEFT HEART CATHETERIZATION (SURG) completed Cyndy Webb [facility] 12/02/2019 12:15:31 12/01/19 LEFT HEART CATHETERIZATION (SURG) completed Cyndy Madsrikanthales [facility] 12/02/2019 12:15:18 10/19/19 20 Stress MPI INITIAL - Lexiscan completed Cindy Roberts [facility] 10/19/2019 19:18:16 10/19/19 20 Stress MPI RESULT - [place] [address], [place], [address], [facility] 10/19/2019 19:47:09 12/28/19 19 Stress MPI RESULT - [place] [address], [place], [address], [facility] 12/27/2018 18:33:20 12/28/19 19 Stress MPI INITIAL - Lexiscan completed Adelita Judy [facility] 12/27/2018 12:05:21 nasal septoplasty completed Not Available [facility] 10/11/2018 00:13:51 placement of stent in coronary artery completed Not Available [facility] 10/11/2018 00:13:51 vasectomy completed Not Available [facility] 10/11/2018 00:13:51 procedure on shoulder completed Annie García [facility] 10/28/2019 22:36:01 Imaging Results Imaging Date Name Status LastModified by Organization Details LastModified Time 05/06/2017 nuclear med completed [id number] [place], [address] 10/19/2019 05:14:51 05/06/2017 nuclear stress test completed [id number] [place], [address] 10/19/2019 07:13:29 05/06/2017 lexiscan stress test completed [id number] [place], [address] 10/19/2019 07:13:29 12/27/2018 nuclear stress test completed JAE Rogers MD [address], [place], [address], 12/28/2018 18:11:01 12/27/2018 US, echocardiogram completed JAE Inform ation not available 12/30/2018 23:58:03 12/27/2018 nuclear stress test completed allie Robles nformation not available 01/10/2019 13:48:18 10/05/2018 electrocardiogram completed Informa tion not available 09/30/2019 23:27:10 10/19/2019 US, echocardiogram, transthoracic, complete, w/ color flow completed Information not available 11/01/2019 10:59:46 09/12/2008 XR, chest, 2 view completed Informa tion not available 12/07/2019 00:22:04 08/24/2012 myocardial perfusion study w/ ejection fraction (PROC) completed Information not available 09/17/2021 15:43:03 11/21/2014 myocardial perfusion study w/ ejection fraction (PROC) completed Information not available 09/17/2021 15:43:19 03/16/2013 trans-thoracic echocardiogram (TTE) (PROC) completed Information not available 09/17/2021 15:45:20 10/25/2014 trans-thoracic echocardiogram (TTE) (PROC) completed [email or web address] Information not available 09/17/2021 15:45:34 08/08/2015 trans-thoracic echocardiogram (TTE) (PROC) completed [email or web address] Information not available 09/17/2021 15:46:14 10/25/2014 trans-thoracic echocardiogram (TTE) (PROC) completed [email or web address] Information not available 09/17/2021 15:45:47 08/06/2011 trans-thoracic echocardiogram (TTE) (PROC) completed [email or web address] Information not available 09/17/2021 15:45:59 09/06/2012 holter monitor completed [email or web address] Informatio n not available 09/17/2021 15:47:14 12/01/2007 trans-thoracic echocardiogram (TTE) (PROC) completed [email or web address] Information not available 09/17/2021 15:49:51 05/09/2009 myocardial perfusion study w/ ejection fraction (PROC) completed [email or web address] Information not available 09/17/2021 15:50:35 12/01/2007 myocardial perfusion study w/ ejection fraction (PROC) completed [email or web address] Information not available 09/17/2021 15:51:01 10/19/2019 lexiscan cardiolite stress test (PROC) completed [email or web address] Information not available 09/17/2021 15:57:26 Procedure Notes None recorded. Medical Equipment None Reported. Allergies No known drug allergies Medications Name Sig Start Date Stop Date Status Note LastModified by Organization Details LastModified Time hydralazine 25 mg tablet one tablet bid active Not Available Not Available No t Available cephalexin 500 mg capsule TAKE ONE CAPSULE BY MOUTH THREE TIMES DAILY FOR 10 DAYS 11/05 completed Not Available Not Available Not Available ranitidine 150 mg tablet 10/04 completed Not Available Not Available Not Available nitroglycer in 0.[address] 1 tablet by sublingua l route. active Not Available Not Available No t Available metoprolol succinate ER 25 mg tablet,exte nded release 24 hr TAKE 1 TABLET DAILY active Not Available Not Available No t Available Pepcid 20 mg tablet daily active Not Available Not Available No t Available testosteron e 1 % (25 mg/2.5 gram) transdermal gel packet daily active Not Available Not Available N ot Available lisinopril 40 mg tablet TAKE 1 TABLET DAILY active Not Available Not Available No t Available rosuvastati n 20 mg tablet Take 1 tablet every day by oral route as directed. 10/04 completed Not Available Not Available Not Available rosuvastati n 40 mg tablet TAKE 1 TABLET DAILY 2021 active Not Available Not Available Not Avai lable tadalafil 10 mg tablet TAKE 1 TABLET DAILY active Not Available Not Available No t Available omega-3 acid ethyl esters 1 gram capsule TAKE 2 CAPSULES TWICE A DAY (MUST SCHEDULE APPOINTME NT FOR FURTHER REFILLS) 2021 active Not Available Not Available Not Avai lable fenofibrate nanocrystal lized 145 mg tablet TAKE 1 TABLET DAILY 2020 active Not Available Not Available Not Avai lable Lexiscan 0.4 mg/5 mL intravenous syringe IV over 10 seconds 11/01 completed Not Available Not Available Not Available Fluad Quad 0141-4089(6 5yr up)(PF) 60 mcg (15 mcg x 4)/0.5mL IM syringe ADM 0.5ML IM UTD 11/05 completed Not Available Not Available Not Available Vitals Date Recorded Body mass index (BMI) Body height Body weight Provider Name and Address Organization Details Last Updated DateTime 08/24/2012 27.15 kg/m2 198.12 cm 596952.12 g Not Available [facility] 10/11/2018 03:45:39 Date Recorded Body mass index (BMI) Body height Oxygen saturation Oxygen saturation in Arterial blood by Pulse oximetry Heart rate Body weight Systolic blood pressure Diastolic blood pressure Provider Name and Address Organization Details Last Updated DateTime 3 26.2 kg/m2 198.12 cm 97 % 97 % 60 /min 788676 g 130 mm[Hg] 60 mm[Hg] Not Available [facility] 9 03:45:39 Date Recorded Body mass index (BMI) Body height Oxygen saturation Oxygen saturation in Arterial blood by Pulse oximetry Heart rate Body weight Systolic blood pressure Diastolic blood pressure Provider Name and Address Organization Details Last Updated DateTime 6 30.68 kg/m2 180.34 cm 97 % 97 % 64 /min 61413 g 146 mm[Hg] 64 mm[Hg] Not Available [facility] 9 03:45:39 Date Recorded Body mass index (BMI) Body height Oxygen saturation Oxygen saturation in Arterial blood by Pulse oximetry Heart rate Body weight Systolic blood pressure Diastolic blood pressure Provider Name and Address Organization Details Last Updated DateTime 9 42.05 kg/m2 162.56 cm 93 % 93 % 65 /min 950996 g 170 mm[Hg] 90 mm[Hg] Not Available [facility] 9 03:45:39 Date Recorded Body mass index (BMI) Body height Oxygen saturation Oxygen saturation in Arterial blood by Pulse oximetry Heart rate Body weight Systolic blood pressure Diastolic blood pressure Provider Name and Address Organization Details Last Updated DateTime 5 26.7 kg/m2 198.12 cm 97 % 97 % 68 /min 812651 g 188 mm[Hg] 90 mm[Hg] Not Available [facility] 9 03:45:39 Date Recorded Body mass index (BMI) Body height Body weight Provider Name and Address Organization Details Last Updated DateTime 11/21/2014 26.58 kg/m2 198.12 cm 743280.16 g Not Available [facility] 10/11/2018 03:45:40 Date Recorded Body mass index (BMI) Body height Oxygen saturation Oxygen saturation in Arterial blood by Pulse oximetry Heart rate Body weight Systolic blood pressure Diastolic blood pressure Provider Name and Address Organization Details Last Updated DateTime 2 26.2 kg/m2 198.12 cm 97 % 97 % 56 /min 990741 g 126 mm[Hg] 82 mm[Hg] Not Available [facility] 9 03:45:40 Date Recorded Body mass index (BMI) Body height Oxygen saturation Oxygen saturation in Arterial blood by Pulse oximetry Heart rate Body weight Systolic blood pressure Diastolic blood pressure Provider Name and Address Organization Details Last Updated DateTime 3 26.9 kg/m2 198.12 cm 95 % 95 % 60 /min 867985 g 130 mm[Hg] 60 mm[Hg] Not Available [facility] 9 03:45:40 Date Recorded Body mass index (BMI) Body height Oxygen saturation Oxygen saturation in Arterial blood by Pulse oximetry Heart rate Body weight Systolic blood pressure Diastolic blood pressure Provider Name and Address Organization Details Last Updated DateTime 7 33.33 kg/m2 180.34 cm 97 % 97 % 70 /min 423244 g 160 mm[Hg] 80 mm[Hg] Not Available [facility] 9 03:45:40 Date Recorded Body mass index (BMI) Body height Body weight Provider Name and Address Organization Details Last Updated DateTime 05/06/2017 45.49 kg/m2 162.56 cm 694633 g Not Available [facility] 10/11/2018 03:45:41 Date Recorded Body height Body mass index (BMI) Body weight Respiratory rate Heart rate Oxygen saturation Oxygen saturation in Arterial blood by Pulse oximetry Systolic blood pressure Diastolic blood pressure Provider Name and Address Organization Details Last Updated DateTime 0 162.56 cm 41.7 kg/m2 759869. 95 g 16 /min 60 /min 97 % 97 % 140 mm[Hg] 80 mm[Hg] Cyndy pitt [facility] 0 11:31:15 Date Recorded Body height Body mass index (BMI) Body weight Respiratory rate Heart rate Oxygen saturation Oxygen saturation in Arterial blood by Pulse oximetry Systolic blood pressure Diastolic blood pressure Provider Name and Address Organization Details Last Updated DateTime 0 162.56 cm 41.7 kg/m2 457894. 95 g 16 /min 60 /min 96 % 96 % 140 mm[Hg] 60 mm[Hg] Cyndy pitt [facility] 0 14:28:10 Date Recorded Body height Heart rate Body mass index (BMI) Body weight Systolic blood pressure Diastolic blood pressure Provider Name and Address Organization Details Last Updated DateTime 0 162.56 cm 96 /min 41.2 kg/m2 667280. 17 g 148 mm[Hg] 91 mm[Hg] Cyndy Espana sweetie cedeño, [facility] 0 11:47:42 Social History Question Answer Notes LastModified by Organizat ion Details LastModified Time Tobacco Smoking Status Former Smoker Not Available [facility] 10/11/2018 05:23:35 What Is Your Occupation? Retired Information not available 09/30/2019 Illicit Drug Use? No Information not available 10/28/2019 If Pulse Oximetry Was Done: Is The Patient's Sp02 Less Than 93% On Room Air? No Information not available 12/14/2019 Marital Status Informatio n not available 09/30/2019 What Was The Date Of Your Most Recent Tobacco Screening? 10/11/2018 Information n ot available 01/07/2019 How Many Children Do You Have? 4 Information not available 09/30/2019 Sex: Male Functional Status None recorded. Mental Status None recorded. Family History Relationship Description Onset Age of this Age Resolved Age Notes Father Father Father Family history of Myocardial infarction Noted as c ause of . Mother Mother Mother Carcinoma of stomach 83 Noted as cause of . Notes:Father: ([phone]) Father: Myocardial Infarction ([phone]) Mother: ([phone]) Mother: Gastric Carcinoma; of Age: 83 Medical History Condition Response Seizure Disorder N Eye Problems (Glaucoma, Retinopathy, Mac ular Degeneration) N High Blood Pressure (Hypertension) Y AFib (Atrial Fibrillation) N GERD/Reflux/Heart Burn Y Depression N Kidney Disease/Stones N High Cholesterol (Hyperlipidemia) Y Sickle Cell Anemia N CHF (Congestive Heart Failure) N Memory Loss (Dementia) N Mental Illness (Bi-Polar Disorder, Schiz ophrenia) N Hearing Loss N Heart Attack (Myocardial Infarction) N Heart Disease/Valve Disease N Cancer N Heart Rhythm Problem (Palpitations) N Carotid Disease N Implantable Pacemaker/Defibrillator/AICD N Stroke/TIA N Prior Blood Transfusion N Arthritis Rheumatoid N Bleeding Problems N Syncope or Passing Out N HIV N Diabetes (Insulin Dependent) N Bradycardia (Slow Heart Rate) Y Gallbladder Disease/Stones N Anxiety N Edema (Swelling) N Anesthetic Complication N Substance Abuse (Alcohol, Drug) N Gastrointestinal Disease (IBS, Gastritis , Ulcer, Acid Reflux) N Blood Clot (Deep Vein Thrombosis) N Anemia N Neuropathy (Numbness, Pain, Tingling) N Chronic Venous Insufficiency N Pulmonary Embolism (Blood Clot in the Karen ng) N Peripheral Vascular Disease (PVD) N Diabetes (Non-Insulin Dependent) N Rheumatic Fever N Claustrophobic N Tuberculosis N AIDS N Asthma N Developmental Disorder N COPD (Chronic Obstructive Pulmonary Dise ase) N Cardiomyopathy (Heart Muscle Disease) Y Sleep Apnea Y Hepatitis N Other Disease(s): N MRSA (Antimicrobial Resistance) N CAD (Coronary Artery Disease) N Thyroid Disease/Disorder N Past Encounters Encounter ID Performer Location Encounter Start Date Encounter Closed Date Diagnosis/Indication Diagnosis SNOMED-CT Code [id number] Lele Rogers MD [facility] [address] [place] [address],[address] [address] 12/27/2018 09:40:27 12/27/2018 12:09:07 Coronary arteriosclerosis in [place] artery [id number] Michael Man, [facility] [address] [place] [address],[address] [address] 10/05/2019 11:21:20 10/05/2019 12:14:02 Coronary arteriosclerosis in [place] artery 3963894344037 Essential hypertension 10046647 Tricuspid valve regurgitation 336346752 Mixed hyperlipidemia 267 998135 Aneurysm o f thoracic aorta 966605813 Obstructiv e sleep apnea syndrome 63213857 [id number] Juventino Rene MD [facility] [address] [place] [address],[address] [address] 10/19/2019 16:43:24 10/19/2019 19:23:12 Coronary arteriosclerosis in [place] artery 8932349776215 [id number] Michael Man DO [facility] [place] [facility] [address] [place] [address] 11/02/2019 13:45:16 11/02/2019 15:00:45 Coronary arteriosclerosis in [place] artery 6661255937639 Essential hypertension 39876115 Tricuspid valve regurgitation 065790546 Mixed hyperlipidemia 267 080914 Aneurysm o f thoracic aorta 671131196 Obstructiv e sleep apnea syndrome 51550805 Mitral james ve regurgitation [id number] Michael JAndrew Man, DO [facility] [address] [place] [address] 12/14/2019 11:34:54 12/14/2019 12:34:27 Coronary arteriosclerosis in [place] artery 6244714485194 Essential hypertension 28044919 Tricuspid valve regurgitation 377395026 Mixed hyperlipidemia 267 021304 Aneurysm o f thoracic aorta 483656324 Obstructiv e sleep apnea syndrome 02436724 Mitral james ve regurgitation 56533938 Chronic ki dney disease 842870184 Hyperglycemia 88729628 Health Concerns Section Related Observation LastModified by Organization Detai ls LastModified Time None Recorded Concern Status LastModified by Organization Details LastModified Time None Recorded Advance Directives Directive None Recorded Payers Encounter Date Sequence Insurance Name Policy Number Policy Bauman Covered Member ID Bauman Member ID Guarantor Name 12/14/2019 2 [employer] - FOR LIFE (MEDICARE SUPPLEMENT) Vamshi Manjarrez [id number] 12/14/2019 1 [place] Vamshi Manjarrez [id number] 11/02/2019 2 [employer] - FOR LIFE (MEDICARE SUPPLEMENT) Vamshi Manjarrez [id number] 11/02/2019 1 [place] Vamshi Manjarrez [id number] 10/19/2019 2 [place] - FOR LIFE (MEDICARE SUPPLEMENT) Vamshi Manjarrez [id number] 10/19/2019 1 [place] Vamshi Manjarrez [id number] 10/05/2019 2 [place] - FOR LIFE (MEDICARE SUPPLEMENT) Vamshi Manjarrez [id number] 10/05/2019 1 [place] Vamshi Manjarrez [id number] 12/27/2018 2 [place] - FOR LIFE (MEDICARE SUPPLEMENT) Vamshi Manjarrez [id number] 12/27/2018 1 [place] Vamshi Manjarrez [id number] Notes Date Note Type Note Provider Name and Address Organization Details Recorded Time 12/27/2018 text/html HPI Notes: [place] [address], [place], [address], [facility] 12/27/2018 18:33:30 10/05/2019 text/html HPI Notes: Retur ns in outpt CV FU Echo testing 12/2018 notable for grade 1 LVDD and normal valvular functions Stress MPI showed a small stable anteroapical ischemic defect unchanged from 2017 [place] [address], [place], [address], [facility] 10/05/2019 12:08:07 10/19/2019 text/html HPI Notes: [place] [address], [place], [address], [facility] 10/19/2019 19:47:21 11/02/2019 text/html HPI Notes: Repea t MPI shows no change in the anterior ischemic defect compared with the MPI of 6 months ago and the echo confimrs a small decline in EF from 55 to 45%. s/p LAD stent 2009 Denies angina but limits exercise due to chronic back pain Michael Man, [address], [place], [address], [facility] 11/02/2019 14:50:46 12/14/2019 text/html HPI Notes: Mr. Manjarrez presents for virtual facetime visit due to COVID-19 pandemic. Visit time of .... minutes He had an abnormal MPI showing anterior ischemia with slight drop in EF from 55 to 45%. LHC at [facility] showed moderate disease, patent LAD stent and no need for intervention. He is on hydralazine, lisinopril and toprol for CHF and appears well compensated. Denies angina but limits exercise due to chronic back pain. Labs show Cr. of 1.7 up from 1.55 on labs in 2017. He follows with Dr. Solis and has a follow [place] [address], [place], [address], [facility] - [place] 12/14/2019 12:31:24
--- OUTSIDE RECORDS SUMMARY | 2023-10-21 07:58 | XMS_ITS | Clinical Summary ---
Author Name Unknown Organization [facility] Address [address] [place] [address] Care Team Providers Care Ep Technologist Name Role Phone Unknown, Provider Primary Care Provider Unavaila ble Allergies No known active allergies Medications Medication Sig Dispensed Refills Start Date End Date Status rosuvastatin (CRESTOR) 20 mg tablet Take 20 mg by mouth every evening. 0 Active fenofibrate (TRICOR) 145 mg tablet Take 145 mg by mouth every evening. 0 Active Orogrande-3 Fatty Acids (FISH OIL PO) Take by mouth. Lovaxa brand name 0 Active acetaminophen (TYLENOL) 500 mg tablet Take 500 mg by mouth every 6 (six) hours as needed for Pain. 0 Active oxyCODONE-acetaminop hen (PERCOCET) 5-325 mg per tablet Take 2 tablets by mouth every 4 (four) hours as needed. 30 tablet 0 08/11/2015 Active pantoprazole (PROTONIX) 40 mg tablet Take 1 tablet (40 mg total) by mouth every morning before breakfast. 30 tablet 0 08/11/2015 Active tamsulosin (FLOMAX) 0.4 mg CAPS Take 1 capsule (0.4 mg total) by mouth daily. Take 30 minutes after the same meal each day. 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 Turcios GERD (gastroesophageal reflux disease) Social History Tobacco Use Types Packs/Day Years Used Date Smoking Tobacco: Former Cigarettes 20 Q uit: 08/02/2011 Smokeless Tobacco: Never Comments:SPOKED A PIPE Alcohol Use Standard Drinks/Week Comments Yes 0 (1 standard drink = 0.6 oz pur e alcohol) OCCASSIONALLY Sex and Gender Information Value Date Recorded Sex Assigned at Not on file Gender Identity Not on file Sexual Orientation Not on file Last Filed Vital Signs Vital Sign Reading Time Taken Comments Blood Pressure 147/79 08/12/2015 8:27 AM MST Pulse 72 08/12/2015 8:27 AM MST Temperature 36.8 ??C (98.3 ??F) 08/12/2015 8:27 AM MS T Respiratory Rate 18 08/12/2015 8:27 AM [facility] Oxygen Saturation 94% 08/12/2015 8:27 AM [facility] Inhaled Oxygen Concentration - - Weight 105 kg (231 lb 8 oz) 08/12/2015 5:00 AM M Height 195.6 cm (6' 5) 08/07/2015 11:21 PM [facility] Body Mass Index 27.45 08/07/2015 11:21 PM [facility] Plan of Treatment Not on file Medical Devices Implanted Type Area Company Marker Device Identifier Shelf Expiration Date Model / Serial / Lot G7 Acetabular Shell 3 Hole Implanted:Qty: 1 on 08/07/2015 by Juan Carlos Escoto MD at [facility] Total Hip [employer] 11/12/2023 [id number] / / [id number] Acetabular Liner Implanted:Qty: 1 on 08/07/2015 by Juan Carlos Escoto MD at [facility] Total Hip [employer]OMET - ORTH[employer] 10/10/2018 [id number] / / [id number] [employer] Complete Micro Primary Femoral Implanted:Qty: 1 on 08/07/2015 by Juan Carlos Escoto MD at [facility] Total Hip BIOMET - ORTHOP[employer] 05/12/2024 [id number] / / [id number] Total Hip Two With Premium Implanted:Qty: 1 on 08/07/2015 by Juan Carlos Escoto MD at [facility] Total Hip [employer] - [employer]TH[employer] HIP TWO WITH PREMIUMS / / Advance Directives For more information, please contact: [phone] Latest Code Status on File Code Status Date Activated Date Inactivated Comments Full Code 08/11/2015 10:44 AM Code Status History Code Status Date Activated Date Inactivated Comments Full Code 08/07/2015 4:55 PM 08/11/2015 10:44 AM Care Teams Ep Technologist Relationship Specialty Start Date End Date Unknown, Provider [address] [place] [address] PCP - General 08/07/15
== END 2023-10-21 07:56 | disposition home or self-care (01) ==
LOC: RAD 07:56
PROVIDERS: PCP Family Medicine; Visit Provider Internal Medicine
DX: I25.10 Atherosclerotic heart disease of native coronary artery without angina pectoris (principal); Z00.00 Encounter for general adult medical examination without abnormal findings; E78.5 Hyperlipidemia, unspecified; N13.8 Other obstructive and reflux uropathy; N40.1 Benign prostatic hyperplasia with lower urinary tract symptoms; I10 Essential (primary) hypertension
CPT/HCPCS: 80053; 80061; 93306; G0103

== ENCOUNTER 2023-12-28 08:45 | Outpatient (CLI) | payer MEDICARE, OTHER, SELFPAY | END 2023-12-28 08:46 | disposition home or self-care (01) | LOC: NFLDREF 13:15 | PROVIDERS: PCP Family Medicine; Visit Provider Internal Medicine | DX: I25.10 Atherosclerotic heart disease of native coronary artery without angina pectoris (principal) | CPT/HCPCS: 80061; 84450; 84460 ==

== ENCOUNTER 2024-03-23 17:06 | Outpatient (REF) | payer MEDICARE, OTHER, SELFPAY ==
--- OUTSIDE RECORDS SUMMARY | 2024-03-23 17:10 | XMS_ITS | Continuity of Care Document ---
Author Organization [facility] Address [address] [address] [place] [address] Phone Care Team Providers Care [employer] Engineer Sergeant Name Role Phone Unavailable Unavailable Unavailable Allergies, Adverse Reactions, Alerts Substance Reaction Status Criticality No Known allergies Medications Medication Instructions Dosage Effective Dates (start - stop) Status Comments Omeprazole unknown 2 tabs daily - Acti ve Omeprazole unknown as needed - Active Prinivil 10 mg Tab Take one tablet by mouth daily - Active Advance Directives Directive Yes / No Effective Date File Name No Information Encounters Encounter Description Practice Location Reason(s) For Visit Diagnoses Date Provider Providers Copied on Encounter [facility], [address] [address], [place], [place], [id number], [place] tel:[phone] [facility] No Information 5 No Information Referring Provider: Mak Darling MD, [address] , [place], [address]. tel:[phone] Family History Family Member Type Diagnosis Age At Onset No Information Payers Payer name Insurance type Covered alliance party ID Authoriza tion(s) No Information Social History Type Description Quantity Date Captured Comments Sex Male Smoking Status No Information Chief Complaint And Reason For Visit No Information Reason For Referral Reason For Referral No Information History Of Present Illness Encounter Date Complaint History Of Prese nt Illness No Information Functional Status Date Functional Assessmen t No Information Instructions Date Instruction Additional Infor mation No Information Assessments Type Assessment Date No Information Patient Care Teams Name Effective Dates (start - stop) Status Members No Information
--- OUTSIDE RECORDS SUMMARY | 2024-03-23 17:10 | XMS_ITS | Continuity of Care Document ---
Author Name [facility] Organization [facility] Care Team Providers Care Letterpress Setter Name Role Phone [facility] Unavailable Unavailable Problems Combined list of problems from [facility] facilities. It does not include entries that were removed or entered in error. Problem Status Onset Date Problem Type Date of Resolution Comments Source Coronary Artery Disease Active Condition Mar 19, 2011 Entered By: ZULMA TIERNEY Comment: lad stent [facility] Gastroesophageal Reflux Disorder Active Condition [facility] Hypertension Active Condition [facility] Hypogonadism Active Condition [facility] Other and unspecified hyperlipidemia Active Condition [facility] Other left bundle branch block Active Condition [facility] SENSORNEUR LOSS BILAT Active Condition [facility] Medications Combined list of outpatient medications from [facility] facilities.Medications provided include 1) outpatient medications from the last 15 months, and 2) patient-reported medications. Medication Details Route Status Patient Instructions Prescription Expires Prescription Number Last Dispense Date Ordering Provider Order Date Order Qty Source CLOPIDOGREL BISULFATE 75MG TAB TAKE ONE TABLET BY MOUTH EVERY MORNING ORAL ACTIVE ZULMA SHETH [address] [place] [place] [facility] FAMOTIDINE (famotidine ), 20 MG, TABLET, ORAL, [employer] 1000 ea. BOTTLE Cancele d [id number] : 2023 0 Pharmac y Data Transac tion Service Facilit y FAMOTIDINE (famotidine ), 20 MG, TABLET, ORAL, [employer] 1000 ea. BOTTLE Active [id number] 4 2023 180 Pharmac y Data Transac tion Service Facilit y FENOFIBRATE (fenofibrat e nanocrystal lized), 145MG, TABLET, ORAL, [employer], 90 ea. BOTTLE Active [id number] 4 2023 90 Pharmac y Data Transac tion Service Facilit y FENOFIBRATE (fenofibrat e nanocrystal lized), 145MG, TABLET, ORAL, [employer], 90 ea. BOTTLE Active [id number] 4 2023 90 Pharmac y Data Transac tion Service Facilit y FENOFIBRATE 134MG CAP TAKE 1 CAPSULE BY MOUTH EVERY DAY ORAL ACTIVE FEATHERST ON,ZULMA P [address] [place] [place] [facility] FISH OIL 1000MG (500MG DHA/EPA) CAP,ORAL TAKE 4 CAPSULES BY MOUTH EVERY DAY ORAL ACTIVE FEATHERST ON,ZULMA P [address] [place] [place] [facility] LISINOPRIL (lisinopril ), 40 MG, TABLET, ORAL, [employer], 1000 ea. BOTTLE Cancele d [id number] : 2023 0 Pharmac y Data Transac tion Service Facilit y LISINOPRIL (lisinopril ), 40 MG, TABLET, ORAL, [employer], 1000 ea. BOTTLE Active [id number] 2023 90 Pharmac y Data Transac tion Service Facilit y LISINOPRIL (lisinopril ), 40 MG, TABLET, ORAL, [employer], 180 ea. BOTTLE Active [id number] 3 2022 90 Pharmac y Data Transac tion Service Facilit y LISINOPRIL 40MG TAB TAKE ONE-HALF TABLET BY MOUTH EVERY MORNING ORAL ACTIVE FEATHERST ON,ZULMA P [address] [place] [place] [facility] METOPROLOL SUCCINATE (metoprolol succinate), 25 MG, TAB ER 24H, ORAL, [employer] 1000 ea. BOTTLE Cancele d [id number] : 2023 0 Pharmac y Data Transac tion Service Facilit y METOPROLOL SUCCINATE (metoprolol succinate), 25 MG, TAB ER 24H, ORAL, [employer] 1000 ea. BOTTLE Active [id number] 4 2023 90 Pharmac y Data Transac tion Service Facilit y METOPROLOL SUCCINATE 50MG TAB,SA TAKE ONE-HALF TABLET BY MOUTH EVERY DAY ORAL ACTIVE FEATHERST ON,ZULMA P [address] [place] [place] [facility] MULTIVITAMI NS CAP/TAB TAKE ONE TABLET BY MOUTH EVERY DAY ORAL ACTIVE FEATHERST ON,ZULMA P 2010 [place] [facility] RANITIDINE HCL 150MG TAB TAKE ONE TABLET BY MOUTH TWICE A DAY ORAL ACTIVE FEATHERST ON,ZULMA P [address] [place] [facility] ROSUVASTATI N CA 40MG TAB TAKE ONE-HALF TABLET BY MOUTH EVERY DAY ORAL ACTIVE FEATHERST ON,ZULMA P [address] [place] [facility] ROSUVASTATI N CALCIUM (rosuvastat in calcium), 40 MG, TABLET, ORAL, [employer] 1000 ea. BOTTLE Cancele d [id number] : 2023 0 Pharmac y Data Transac tion Service Facilit y ROSUVASTATI N CALCIUM (rosuvastat in calcium), 40 MG, TABLET, ORAL, [employer] 1000 ea. BOTTLE Active [id number] 2023 90 Pharmac y Data Transac tion Service Facilit y SILDENAFIL CITRATE (sildenafil citrate), 50 MG, TABLET, ORAL, [employer], 100 ea. BOTTLE Cancele d [id number] : 2023 0 Pharmac y Data Transac tion Service Facilit y SILDENAFIL CITRATE (sildenafil citrate), 50 MG, TABLET, ORAL, [employer], 100 ea. BOTTLE Active [id number] 2023 10 Pharmac y Data Transac tion Service Facilit y SILDENAFIL CITRATE (sildenafil citrate), 50 MG, TABLET, ORAL, [employer], 100 ea. BOTTLE Active [id number] 2023 10 Pharmac y Data Transac tion Service Facilit y SILDENAFIL CITRATE (sildenafil citrate), 50 MG, TABLET, ORAL, [employer], 100 ea. BOTTLE Active [id number] 2023 10 Pharmac y Data Transac tion Service Facilit y SILDENAFIL CITRATE (sildenafil citrate), 50 MG, TABLET, ORAL, [employer], 100 ea. BOTTLE Active [id number] 2023 10 Pharmac y Data Transac tion Service Facilit y SILDENAFIL CITRATE (sildenafil citrate), 50 MG, TABLET, ORAL, [employer], 100 ea. BOTTLE Active [id number] 4 2023 10 Pharmac y Data Transac tion Service Facilit y TESTOSTERON E GEL,TOP APPLY 5 GRAMS TOPICALL Y EVERY DAY TOPICA L ACTIVE FEATHERST ON,ZULMA P [address] [place] [place] [facility] Immunizations Combined list of available immunizations from the Department of Defense and Veterans Affairs facilities. Immunization Series Date Given Administered By Site Reaction Lot Number CVX Code Drug Cushion Former Status Comments Source zoster recombinant 2020 DINORAH, () Not Given zoster recombina nt [facility] Influenza vaccine, quadrivalent, adjuvanted 2019 OVERHOLT, () Not Given Influenza vaccine, quadrival ent, adjuvante d [facility] INFLUENZA, UNSPECIFIED FORMULATION 2010 NONE 88 complet ed [id number] anofi Pasteur/0 12/13/2011 [place] [place] [facility] PNEUMOCOCCAL, UNSPECIFIED FORMULATION 2010 NONE 109 complet ed [employer] [id number] / [id number] [place] [place] [facility] TD(ADULT) UNSPECIFIED FORMULATION 2010 NONE 139 complet ed [id number]/ [id number]/ Sanofi Pasteur [place] [place] [facility] INFLUENZA, UNSPECIFIED FORMULATION [address] [facility] INFLUENZA, UNSPECIFIED FORMULATION [address] [facility] Social History Combined list of available smoking, tobacco, and other social history from Department of Defense and Veterans Affairs facilities. Social History Type Response Date Comment Sourc e Tobacco smoking status NHIS LIFETIME NON-USER OF TOBACCO 03/19/2011 [place] [place] [facility] This section is an empty social history section. [facility] Advance Directives List of completed, amended, or rescinded Advance Directives on record at [facility] facilities. An actual copy of the Directive is not included. Date Advance Directive Provider Source 10/20/[address] [facility]
[2024-03-23 19:43] LABS: Chloride* 104 mmol/L (96-114); Potassium* 5.1 mmol/L (3.6-5.1); Sodium* 138 mmol/L (135-149)
[2024-03-23 19:46] LABS: Anion Gap 7 mEq/L (7-15); Blood Urea Nitrogen* 21 mg/dL (7-30); Carbon Dioxide* 27 mmol/L (20-32); Creatinine* 1.3 mg/dL (0.5-1.5); Estimated Glomerular Filt Rate 55 ml/min
[2024-03-23 19:47] LABS: Calcium* 9.5 mg/dL (8.4-10.6); Glucose* 120 mg/dL (60-115)
== END 2024-03-23 17:07 | disposition home or self-care (01) ==
LOC: NPINS 17:06
PROVIDERS: PCP Family Medicine; Visit Provider Internal Medicine Nephrology
DX: N18.31 Chronic kidney disease, stage 3a (principal)
CPT/HCPCS: 80048; 80061

== ENCOUNTER 2024-11-25 08:08 | Outpatient (CLI) | payer MEDICARE, OTHER, SELFPAY | END 2024-11-25 08:09 | disposition home or self-care (01) | LOC: NFLDREF 11-28 20:33 | PROVIDERS: PCP Family Medicine; Referring Provider Family Medicine; Visit Provider Family Medicine | DX: E78.5 Hyperlipidemia, unspecified (principal); N40.1 Benign prostatic hyperplasia with lower urinary tract symptoms; I12.9 Hypertensive chronic kidney disease with stage 1 through stage 4 chronic kidney disease, or unspecified chronic kidney disease; N18.9 Chronic kidney disease, unspecified; Z12.5 Encounter for screening for malignant neoplasm of prostate | CPT/HCPCS: 80053; 80061; G0103 ==